=== PATIENT | male | born 1975 | race Asian ===

== ENCOUNTER → 2019-05-02 | Outpatient (CLI) | payer OTHER | LOC: RAD 21:15 | DX: R07.89 Other chest pain (principal) ==

== ENCOUNTER 2019-08-16 14:45 | Emergency (ER) | payer OTHER ==
[~2019-08-16] VITALS: Ht 172.7 cm; Wt 67.1 kg
[2019-08-16 14:52] VITALS: TEMP 98.7
[2019-08-16 16:09] LABS: PLATELET COUNT 133 K/uL (142-355)
[2019-08-16 16:18] LABS: POTASSIUM 3.6 mmol/L (3.6-5.2)
[2019-08-16 17:45] VITALS: BP 130/69
== END 2019-08-16 17:45 | disposition home or self-care (01) ==
LOC: ED 14:45
PROVIDERS: Emergency Medicine
DX: R11.2 Nausea with vomiting, unspecified (principal)
CPT/HCPCS: 80053; 85027; 96360; 96375; 99284; J1642; J2405

== ENCOUNTER 2019-09-10 15:00 | Emergency (ER) | payer OTHER ==
[~2019-09-10] VITALS: Ht 172.7 cm; Wt 68.9 kg
[2019-09-10 15:20] VITALS: TEMP 97.7
[2019-09-10 16:40] LABS: PLATELET COUNT 80 K/uL (142-355)
[2019-09-10 16:47] LABS: POTASSIUM 3.4 mmol/L (3.6-5.2); SODIUM 140 mmol/L (136-145)
[2019-09-10 16:54] LABS: PARTIAL THROMBOPLASTIN TIME 25.4 SECONDS (24.5-33.6)
[2019-09-10 19:08] VITALS: BP 152/82
== END 2019-09-10 19:08 | disposition home or self-care (01) ==
LOC: ED 15:00
PROVIDERS: Hospitalist
DX: J06.9 Acute upper respiratory infection, unspecified (principal); E86.0 Dehydration; E87.6 Hypokalemia; Z20.828 Contact with and (suspected) exposure to other viral communicable diseases
CPT/HCPCS: 36415; 80053; 81000; 82550; 83605; 83880; 84484; 85027; 85379; 85610; 85730; 87040; 87502; 87635; 87651; 93005; 96360; 96365; 96375; 96376; 99284; J1642; J2405; Q9963; U00003

== ENCOUNTER 2020-10-21 13:33 | Emergency (ER) | payer OTHER ==
[~2020-10-21] VITALS: Ht 172.7 cm; Wt 59.0 kg
[2020-10-21 14:31] LABS: PLATELET COUNT 179 K/uL (142-355)
[2020-10-21 14:47] LABS: POTASSIUM 3.2 mmol/L (3.6-5.2); SODIUM 136 mmol/L (136-145)
[2020-10-21 18:10] VITALS: BP 121/74; TEMP 98
== END 2020-10-21 18:19 | disposition home or self-care (01) ==
LOC: ED 13:33
PROVIDERS: Emergency Medicine
DX: R00.0 Tachycardia, unspecified (principal); E86.0 Dehydration; R63.0 Anorexia
CPT/HCPCS: 80053; 82150; 83690; 84484; 85008; 85027; 93005; 96360; 96365; 96374; 96375; 99284; J1170; J2405

== ENCOUNTER 2020-11-13 15:02 | Emergency (ER) | payer OTHER ==
[~2020-11-13] VITALS: Ht 172.7 cm; Wt 67.6 kg
[2020-11-13 15:10] VITALS: BP 117/88; TEMP 98.5
== END 2020-11-13 16:23 | disposition home or self-care (01) ==
LOC: ED 15:02
DX: H10.89 Other conjunctivitis (principal)
CPT/HCPCS: 99282

== ENCOUNTER 2021-01-20 15:08 | Emergency (ER) | payer OTHER ==
[~2021-01-20] VITALS: Ht 172.7 cm; Wt 70.3 kg
[2021-01-20 15:44] LABS: PLATELET COUNT 115 K/uL (142-355)
[2021-01-20 15:52] LABS: POTASSIUM 3.4 mmol/L (3.6-5.2)
[2021-01-20 17:46] VITALS: BP 151/100; TEMP 98.9
== END 2021-01-20 17:46 | disposition home or self-care (01) ==
LOC: ED 15:08
PROVIDERS: Emergency Medicine
DX: I47.1 Supraventricular tachycardia (principal); J40 Bronchitis, not specified as acute or chronic; C34.90 Malignant neoplasm of unspecified part of unspecified bronchus or lung; F17.210 Nicotine dependence, cigarettes, uncomplicated
CPT/HCPCS: 36415; 80053; 82150; 83690; 84484; 85027; 93005; 96360; 96365; 96372; 96375; 99284; J0696; J1100; J3490

== ENCOUNTER 2021-01-21 12:41 | Emergency (ER) | payer OTHER ==
[~2021-01-21] VITALS: Ht 172.7 cm; Wt 70.3 kg
[2021-01-21 12:48] VITALS: TEMP 98.4
[2021-01-21 13:29] LABS: PLATELET COUNT 106 K/uL (142-355)
[2021-01-21 13:34] LABS: POTASSIUM 3.7 mmol/L (3.6-5.2)
[2021-01-21 16:00] VITALS: BP 147/99
== END 2021-01-21 16:35 | disposition home or self-care (01) ==
LOC: ED 12:41
PROVIDERS: Hospitalist
DX: J40 Bronchitis, not specified as acute or chronic (principal); R11.2 Nausea with vomiting, unspecified; F17.210 Nicotine dependence, cigarettes, uncomplicated
CPT/HCPCS: 36415; 80053; 81000; 82150; 83690; 85027; 96360; 96365; 96375; 99284; J0696; J2405; Q9963

== ENCOUNTER 2021-01-24 17:36 | Emergency (ER) | payer OTHER ==
[~2021-01-24] VITALS: Ht 170.2 cm; Wt 67.6 kg
[2021-01-24 19:02] LABS: PLATELET COUNT 106 K/uL (142-355)
[2021-01-24 20:50] VITALS: BP 128/70; TEMP 99
== END 2021-01-24 20:50 | disposition home or self-care (01) ==
LOC: ED 17:36
PROVIDERS: Emergency Medicine
DX: E86.0 Dehydration (principal); E87.6 Hypokalemia
CPT/HCPCS: 36415; 80053; 85027; 96360; 96375; 99284; J2405

== ENCOUNTER 2021-06-27 21:02 | Emergency (ER) | payer OTHER ==
[~2021-06-27] VITALS: Ht 172.7 cm; Wt 66.7 kg
[2021-06-27 22:38] LABS: PLATELET COUNT 96 K/uL (142-355)
[2021-06-27 22:44] LABS: PARTIAL THROMBOPLASTIN TIME 28.5 SECONDS (24.5-33.6)
[2021-06-27 23:55] VITALS: BP 109/81; TEMP 98.3
== END 2021-06-27 23:55 | disposition home or self-care (01) ==
LOC: ED 21:02
PROVIDERS: Hospitalist
DX: E86.0 Dehydration (principal); E87.6 Hypokalemia
CPT/HCPCS: 36415; 80053; 82550; 83880; 84484; 85027; 85610; 85730; 93005; 96360; 96374; 99284; J2405

== ENCOUNTER 2021-06-29 12:52 | Emergency (ER) | payer OTHER ==
[~2021-06-29] VITALS: Ht 172.7 cm; Wt 66.7 kg
[2021-06-29 13:45] LABS: PLATELET COUNT 33 K/uL (142-355)
[2021-06-29 13:50] LABS: POTASSIUM 2.9 mmol/L (3.6-5.2)
[2021-06-29 14:13] LABS: PARTIAL THROMBOPLASTIN TIME 29.3 SECONDS (24.5-33.6)
[2021-06-29 14:50] VITALS: BP 110/54; TEMP 97.7
== END 2021-06-29 14:50 | disposition home or self-care (01) ==
LOC: ED 12:52
PROVIDERS: Hospitalist
DX: E86.0 Dehydration (principal); E87.6 Hypokalemia; Z20.822 Contact with and (suspected) exposure to COVID-19
CPT/HCPCS: 36415; 80053; 82550; 83880; 84484; 85027; 85610; 85730; 87635; 93005; 96360; 99284; U0003

== ENCOUNTER 2021-08-19 09:09 | Emergency (ER) | payer OTHER ==
[~2021-08-19] VITALS: Ht 172.7 cm; Wt 66.7 kg
[2021-08-19 10:15] VITALS: BP 127/79; TEMP 98.4
== END 2021-08-19 10:15 | disposition home or self-care (01) ==
LOC: ED 09:09
DX: R11.2 Nausea with vomiting, unspecified (principal); Z92.21 Personal history of antineoplastic chemotherapy; Z85.118 Personal history of other malignant neoplasm of bronchus and lung
CPT/HCPCS: 96372; 99282; J2405

== ENCOUNTER 2021-12-17 23:42 | Emergency (ER) | payer OTHER ==
[~2021-12-17] VITALS: Ht 172.7 cm; Wt 53.1 kg
[2021-12-18 00:23] LABS: POTASSIUM 4.1 mmol/L (3.6-5.2)
[2021-12-18 00:24] LABS: PLATELET COUNT 117 K/uL (142-355)
[2021-12-18 00:38] LABS: PARTIAL THROMBOPLASTIN TIME 34.4 SECONDS (24.5-33.6)
[2021-12-18 03:30] VITALS: BP 88/59; TEMP 97.8
== END 2021-12-18 03:30 | disposition short-term general hospital (02) ==
LOC: ED 23:42
PROVIDERS: Emergency Medicine Emergency Medical Services
PROC: 0T9B70Z Drainage of Bladder with Drainage Device, Via Natural or Artificial Opening (ICD-10-PCS; principal; 2021-12-17)
PROC: 5A1935Z Respiratory Ventilation, Less than 24 Consecutive Hours (ICD-10-PCS; 2021-12-17)
DX: I21.4 Non-ST elevation (NSTEMI) myocardial infarction (principal); J18.9 Pneumonia, unspecified organism; A41.9 Sepsis, unspecified organism
CPT/HCPCS: 36415; 36600; 51702; 80053; 82805; 83880; 84484; 85027; 85379; 85610; 85730; 87040; 92950; 93005; 94002; 96360; 96361; 96365; 96366; 96375; 99285; J0282; J0696; J1644; J3490